=== PATIENT | female | born 1975 | race African-American/Black ===

== ENCOUNTER 2016-05-11 17:59 | Emergency (ER) | payer MEDICARE, OTHER ==
[~2016-05-11] VITALS: Ht 160 cm; Wt 111.1 kg
[~2016-05-11 17:59] MED LIST: ALPR0.5T8; AMLO5TAB2; ATORVASTATIN 20 MG TABLET; BENA20TA2; CITA20TA11; CLON0.5T4; FURO40TA5; HYDR-4075; INSU100V11; INSU100V7; ISOS10TA2; ONDA-25; POLY255P2
[2016-05-11 18:32] VITALS: BP 144/99
== END 2016-05-11 19:54 | disposition home or self-care (01) ==
LOC: ER 18:01
DX: L25.9 Unspecified contact dermatitis, unspecified cause (principal); E11.9 Type 2 diabetes mellitus without complications; H54.0 Blindness, both eyes; H54.8 Legal blindness, as defined in USA; M79.89 Other specified soft tissue disorders; G35 Multiple sclerosis; E11.22 Type 2 diabetes mellitus with diabetic chronic kidney disease; I12.9 Hypertensive chronic kidney disease with stage 1 through stage 4 chronic kidney disease, or unspecified chronic kidney disease; N18.9 Chronic kidney disease, unspecified; Z79.4 Long term (current) use of insulin; Z90.49 Acquired absence of other specified parts of digestive tract
CPT/HCPCS: 99283; A4606; Z7610